=== PATIENT | female | born 1990 | race Native Hawaiian/Other Pacific Islander ===

== ENCOUNTER 2017-02-22 22:28 | Emergency (ER) | payer SELFPAY ==
[~2017-02-22] VITALS: Ht 175.3 cm; Wt 136.1 kg
[2017-02-22 22:39] VITALS: BP 133/83
[2017-02-22 23:01] LABS: Urine Bilirubin Negative (Negative); Urine Blood Negative /uL (Negative); Urine Color Yellow (Yellow); Urine Glucose Normal (Normal); Urine Ketone Negative (Negative); Urine Mucus FEW (None Seen); Urine Nitrite Negative (Negative); Urine RBC 14 /hpf (0 - 4); Urine Squamous Epithelial Cell MOD /hpf (<5); Urine Urobilinogen Normal (Negative)
[2017-02-22 23:56] LABS: Basophils # (auto) 0 uL; Basophils % (auto) 0.7 % (0.0-2.0); DEFINITIVE SEE PRINTOUT; Eosinophils # (auto) 0.1 uL; Eosinophils % (auto) 1.4 % (0.0-7.0); Hematocrit 34.5 % (36.0-46.0); Hemoglobin 10.7 g/dL (12.2-16.2); Lymphocytes # (auto) 1.9 uL; Lymphocytes % (auto) 28.9 % (10.0-50.0); Mean Corpuscular Hemoglobin 21.5 pg (28.0-32.0); Mean Corpuscular Hgb Conc. 30.9 g/dL (32.0-36.0); Mean Corpuscular Volume 69.7 fL (80.0-100.0); Monocytes # (auto) 0.4 uL; Neutrophils # (auto) 4.3 uL; Platelet Count (auto) 305 10^3/uL (140-450); Red Cell Distribution Width 15.4 % (11.6-16.0); White Blood Cell 6.7 10^3/uL (4.4-10.8)
[2017-02-23 00:08] LABS: Albumin 3.8 g/dL (3.4-5.0); BUN/Creatinine Ratio 10.8; Calcium 8.5 mg/dL (8.5-10.1); Potassium 3.4 mmol/L (3.5-5.1)
[2017-02-23 00:20] LABS: Bilirubin, Total 0.5 mg/dL (0.2-1.0); Total Protein 8.2 g/dL (6.4-8.2)
== END 2017-02-23 06:18 | disposition left against medical advice (07) ==
LOC: ER 22:28
DX: R10.32 Left lower quadrant pain (principal); R11.2 Nausea with vomiting, unspecified; Z53.21 Procedure and treatment not carried out due to patient leaving prior to being seen by health care provider
CPT/HCPCS: 36415; 80053; 81001; 83690; 83735; 84702; 85025

== ENCOUNTER 2017-05-25 21:37 | Emergency (ER) | payer SELFPAY ==
[~2017-05-25] VITALS: Ht 175.3 cm; Wt 122.5 kg
[2017-05-25 21:50] VITALS: BP 131/60
[2017-05-25 22:47] LABS: Urine Bilirubin Negative (Negative); Urine Blood 3+ /uL (Negative); Urine Color Yellow (Yellow); Urine Glucose Normal (Normal); Urine Ketone Negative (Negative); Urine Mucus FEW (None Seen); Urine Nitrite Negative (Negative); Urine RBC 13 /hpf (0 - 4); Urine Squamous Epithelial Cell MANY /hpf (<5); Urine pH 5.5 (5.0-8.0)
[2017-05-25 23:10] LABS: Basophils # (auto) 0.1 uL; Hematocrit 32.1 % (36.0-46.0); Hemoglobin 9.9 g/dL (12.2-16.2); Monocytes # (auto) 0.6 uL; Monocytes % (auto) 8.3 % (0.0-12.0); Neutrophils # (auto) 4.1 uL; Nucleated Red Blood Cells % 0.1 %
[2017-05-25 23:12] LABS: Basophils % (auto) 0.8 % (0.0-2.0); Eosinophils # (auto) 0.2 uL; Eosinophils % (auto) 3.1 % (0.0-7.0); Lymphocytes # (auto) 2.1 uL; Lymphocytes % (auto) 29.6 % (10.0-50.0); Mean Corpuscular Hemoglobin 19.7 pg (28.0-32.0); Mean Corpuscular Hgb Conc. 30.8 g/dL (32.0-36.0); Mean Platelet Volume 6.9 fL (6.9-10.8); Neutrophils % (auto) 58.2 % (37.0-80.0); Platelet Count (auto) 291 10^3/uL (140-450); White Blood Cell 7.1 10^3/uL (4.4-10.8)
[2017-05-25 23:56] LABS: Albumin 3.6 g/dL (3.4-5.0); Calcium 8.4 mg/dL (8.5-10.1); Potassium 3.9 mmol/L (3.5-5.1)
[2017-05-25 23:59] LABS: Bilirubin, Total 0.3 mg/dL (0.2-1.0); Total Protein 8.4 g/dL (6.4-8.2)
== END 2017-05-26 04:23 | disposition left against medical advice (07) ==
LOC: ER 21:41
DX: R51 Headache (principal); R10.9 Unspecified abdominal pain; Z53.21 Procedure and treatment not carried out due to patient leaving prior to being seen by health care provider
CPT/HCPCS: 36415; 80053; 81001; 81025; 85025

== ENCOUNTER 2017-06-20 08:38 | Emergency (ER) | payer SELFPAY ==
[~2017-06-20] VITALS: Ht 177.8 cm; Wt 127.0 kg
[2017-06-20 09:06] VITALS: BP 126/69
== END 2017-06-20 09:34 | disposition home or self-care (01) ==
LOC: ER 08:38
DX: J01.10 Acute frontal sinusitis, unspecified (principal)
CPT/HCPCS: 81025

== ENCOUNTER 2018-02-05 03:53 | Emergency (ER) | payer MEDICAID ==
[~2018-02-05] VITALS: Ht 175.3 cm; Wt 125.2 kg
[2018-02-05 04:05] VITALS: BP 120/57
[2018-02-05 04:20] LABS: Urine Bacteria NONE SEEN /hpf (None Seen); Urine Blood Negative /uL (Negative); Urine Specific Gravity 1.017 (1.001-1.035); Urine WBC 7 /hpf (0 - 5)
== END 2018-02-05 05:37 | disposition left against medical advice (07) ==
LOC: ER 03:57
DX: L29.9 Pruritus, unspecified (principal); Z53.21 Procedure and treatment not carried out due to patient leaving prior to being seen by health care provider
CPT/HCPCS: 81001; 81025

== ENCOUNTER 2018-03-25 18:16 | Observation (INO) | payer MEDICAID ==
[~2018-03-25] VITALS: Ht 175.3 cm; Wt 108.9 kg
[2018-03-25 19:54] LABS: Eosinophils # (auto) 0.5 uL; Mean Corpuscular Hgb Conc. 30.2 g/dL (32.0-36.0); Monocytes # (auto) 0.4 uL; Monocytes % (auto) 5.3 % (0.0-12.0); Nucleated Red Blood Cells % 0.1 %; White Blood Cell 7.7 10^3/uL (4.4-10.8)
[2018-03-25 19:57] LABS: Basophils # (auto) 0 uL; Basophils % (auto) 0.6 % (0.0-2.0); Eosinophils % (auto) 6.3 % (0.0-7.0); Hematocrit 33.1 % (36.0-46.0); Lymphocytes # (auto) 1.7 uL; Lymphocytes % (auto) 22.6 % (10.0-50.0); Mean Corpuscular Volume 59.7 fL (80.0-100.0); Neutrophils % (auto) 65.2 % (37.0-80.0); Platelet Count (auto) 295 10^3/uL (140-450); Red Blood Cells 5.55 10^6/uL (4.0-5.20)
[2018-03-25 20:06] LABS: Urine Bacteria NONE SEEN /hpf (None Seen); Urine Blood Negative /uL (Negative); Urine Mucus FEW (None Seen); Urine Specific Gravity 1.028 (1.001-1.035); Urine WBC 57 /hpf (0 - 5)
[2018-03-25 20:08] LABS: Red Cell Distribution Width 21.7 % (11.8-14.3)
[2018-03-25 20:29] LABS: Albumin 3.6 g/dL (3.4-5.0); BUN/Creatinine Ratio 12.5; Calcium 8.5 mg/dL (8.5-10.1); Potassium 3.6 mmol/L (3.5-5.1)
[2018-03-25 20:36] LABS: Bilirubin, Total 0.2 mg/dL (0.2-1.0); Total Protein 8.5 g/dL (6.4-8.2)
[2018-03-26] MEDS ORDERED: cefTRIAXone SOD 1,000 MG VL IM ONE (02:30)
[2018-03-26] MEDS ORDERED: cefTRIAXone SOD 1,000 MG VL ONE (02:34)
[2018-03-26 03:00] VITALS: BP 109/54
[2018-03-26] MEDS ORDERED: SODIUM CHLORIDE 0.9% 1,000 ML IV ONE (03:15)
[2018-03-26] MEDS ORDERED: ONDANSETRON HCL 4 MG/2 ML VIAL IV ONE (03:45)
[2018-03-26] MEDS ORDERED: MORPHINE SULFATE 4 MG/ML SYR/VIAL IV ONE (03:45)
== END 2018-03-26 04:51 | disposition home or self-care (01) | DRG 347 ==
LOC: EDBD 18:16 → ER 18:16 → OVERFLOW 18:17 → ER 03-26 04:51
PROVIDERS: ADMIT Emergency Medicine; ATTEND Emergency Medicine
DX: M54.5 Low back pain (principal); E66.01 Morbid (severe) obesity due to excess calories; R10.30 Lower abdominal pain, unspecified
CPT/HCPCS: 36415; 74176; 80053; 81001; 81025; 85025; 96361; 96372; 96374; 96375; 99285; G0378; J0696; J2270; J2405

== ENCOUNTER 2018-04-25 09:57 | Emergency (ER) | payer MEDICAID ==
[~2018-04-25] VITALS: Ht 172.7 cm; Wt 122.5 kg
[2018-04-25 10:15] VITALS: BP 110/62
[2018-04-25 11:07] LABS: Urine Bacteria NONE SEEN /hpf (None Seen); Urine Blood Negative /uL (Negative); Urine Mucus FEW (None Seen); Urine Specific Gravity 1.028 (1.001-1.035); Urine WBC 4 /hpf (0 - 5)
[2018-04-25 12:08] LABS: Basophils # (auto) 0 uL; Basophils % (auto) 0.5 % (0.0-2.0); Eosinophils # (auto) 0.3 uL; Hematocrit 33.7 % (36.0-46.0); Hemoglobin 10.5 g/dL (12.2-16.2); Mean Corpuscular Hemoglobin 19.3 pg (28.0-32.0); Monocytes # (auto) 0.4 uL; Monocytes % (auto) 6.4 % (0.0-12.0)
[2018-04-25 12:11] LABS: Eosinophils % (auto) 4.5 % (0.0-7.0); Lymphocytes # (auto) 1.4 uL; Lymphocytes % (auto) 23.7 % (10.0-50.0); Mean Corpuscular Hgb Conc. 31.1 g/dL (32.0-36.0); Neutrophils # (auto) 3.9 uL; Neutrophils % (auto) 64.9 % (37.0-80.0); Nucleated Red Blood Cells % 0.1 %; Platelet Count (auto) 259 10^3/uL (140-450); Red Blood Cells 5.43 10^6/uL (4.0-5.20)
[2018-04-25 12:27] LABS: Red Cell Distribution Width 22.8 % (11.8-14.3)
[2018-04-25 12:32] LABS: Albumin 3.4 g/dL (3.4-5.0); Calcium 8.2 mg/dL (8.5-10.1); Potassium 4.2 mmol/L (3.5-5.1)
[2018-04-25 12:34] LABS: BUN/Creatinine Ratio 16.3
[2018-04-25 12:37] LABS: Bilirubin, Total 0.3 mg/dL (0.2-1.0)
== END 2018-04-25 14:05 | disposition left against medical advice (07) ==
LOC: ER 09:57
DX: R10.9 Unspecified abdominal pain (principal); M54.9 Dorsalgia, unspecified; Z53.21 Procedure and treatment not carried out due to patient leaving prior to being seen by health care provider
CPT/HCPCS: 36415; 80053; 81001; 84702; 85025